=== PATIENT | female | born 1965 ===

== ENCOUNTER 2016-09-25 07:05 | Day surgery (SDC) | payer OTHER ==
[2016-09-17 10:34] VITALS: BMI 28.1
[~2016-09-25 07:05] MED LIST: Ciprofloxacin 0.3% OPTH SOLN OD SCH; Cyclopentolate 1% Opth (2 ml) OD SCH; Flurbiprofen 0.03% Opht SOLN OD SCH; Lactated Ringer's 500 ML IV ONE; Phenylephrine 2.5% Opht Soln OD SCH; Tropicamide 1% Opht SOLUTION OD SCH
[2016-09-25] MEDS ORDERED: Tobramycin/Dexamethasone OPHT OINT ONE ×2 (07:45→07:52)
[2016-09-25] MEDS ORDERED: Chondroitin/Hyaluronate Opth Syringe KIT (0.55 ml-0.5 ml) IO ONE (07:45)
[2016-09-25] MEDS ORDERED: Hyaluronidase Human, Recombi 150 U/ML VIAL ONE ×2 (07:45→09:22)
[2016-09-25] MEDS ORDERED: Carbachol 0.01% IO ONE (07:45)
[2016-09-25] MEDS ORDERED: Povidone Iodine Ophthalmic 5% Soln ONE (07:45)
[2016-09-25] MEDS ORDERED: Tetracaine 0.5% Ophth (OR ONLY) ONE (07:45)
[2016-09-25] MEDS ORDERED: Lidocaine 2% w Epi 1:100,000 Inj IJ ONE (07:52)
[2016-09-25] MEDS ORDERED: Gentamicin 80 mg/2mL Inj. ONE (08:03)
[2016-09-25] MEDS ORDERED: MethylPREDNISolone 40 mg Vial ONE (08:04)
[2016-09-25] MEDS ORDERED: Lactated Ringer's 500 ML IV ONE ×2 (08:25→09:42)
[2016-09-25] MEDS ORDERED: Midazolam 2 MG/2 ML VIAL ONE (09:24)
[2016-09-25] MEDS ORDERED: Propofol 10 mg/ml Inj (20 ML) ONE (09:25)
[2016-09-25 12:17] VITALS: BP 110/64; PULSE 74; RESP 16; TEMP 98.4; O2SAT 99
--- NOTE | 2016-09-26 09:31 | OP ---
PROCEDURE DATE: 09/25/2016 PREOPERATIVE DIAGNOSIS: Peripheral progressive pterygium, right eye. POSTOPERATIVE DIAGNOSIS: Peripheral progressive pterygium, right eye. PROCEDURE PERFORMED: Pterygium removal of right eye. ANESTHESIA: Retrobulbar block. ATTENDING: Dr. Thai Montano COMPLICATIONS: None. ESTIMATED BLOOD LOSS: 0.5 mL. DESCRIPTION OF PROCEDURE: The patient was brought to the operating room, properly identified, sitting superiorly. The pterygium was injected with lidocaine with epinephrine 0.12 and Vianey scissors used to remove the pterygium. The corneal portion was smoothed out with the alen vandana. Hemostasis was maintained with cautery. Mitomycin C was placed on the bare sclera for 1-1/2 minutes and then washed with BSS solution, three large syringes. Once this was complete amniotic membrance was cut to the appropriate site and glued into place with Tisseel glue. Once this was complete, subconjunctival antibiotics and steroids were then given. The eye was covered with soft patch and shield. The patient returned to recovery area in stable condition. Thai Montano MD cc: [id number] TT: 09/26/2016 09:31:05 jn MTDD
== END 2016-09-25 11:40 | disposition home or self-care (01) ==
LOC: C.SDS 07:05
PROVIDERS: ATTEND Ophthalmology
DX: H11.051 Peripheral pterygium, progressive, right eye (principal)
CPT/HCPCS: 65420; 88304; J1580; J2250; J2704; J2920; J3470; J7120; J9280

== ENCOUNTER 2016-09-28 06:01 | Emergency (ER) | payer OTHER ==
[2016-09-28 06:01] VITALS: BMI 28.1
--- NOTE | 2016-09-28 06:37 | C.PDOC ---
History Of Present Illness A 51 y/o female presents to the ER c/o right shoulder pain for 2 days. Pt denies injury, numbness or weakness, or any other complaints. Time Seen by Provider: 09/28/16 06:30 Chief Complaint (Nursing): Upper Extremity Problem/Injury History Per: Patient History/Exam Limitations: no limitations Onset/Duration Of Symptoms: Days Current Symptoms Are (Timing): Still Present Quality: "Pain" Severity: Mild Exacerbating Factor(s): Movement Additional History Per: Patient Past Medical History Reviewed: Historical Data, Nursing Documentation, Vital Signs Vital Signs: Last Vital Signs Temp 98.3 F 09/28/16 06:11 Pulse 85 09/28/16 06:11 Resp 20 09/28/16 06:11 BP 136/79 09/28/16 06:11 Pulse Ox 96 09/28/16 06:38 - Medical History PMH: Hyperthyroidism Denies: Chronic Kidney Disease - [facility] Procedures DRAINAGE OF LEFT UPPER LOBE BRONCHUS, ENDO, DIAGN (12/13/15) Family History: States: Unknown Family Hx - Social History Hx Alcohol Use: No - Immunization History Hx Tetanus Toxoid Vaccination: No Hx Influenza Vaccination: No Hx Pneumococcal Vaccination: No Review Of Systems Except As Marked, All Systems Reviewed And Found Negative. Musculoskeletal: Positive for: Shoulder Pain (Right ). Negative for: Other ( Injury) Neurological: Negative for: Weakness, Numbness Physical Exam - Physical Exam Appears: Non-toxic, No Acute Distress Skin: Warm, Dry Head: Atraumatic, Normacephalic Eye(s): bilateral: Normal Inspection Cardiovascular: Rhythm Regular, No Murmur Respiratory: Normal Breath Sounds, No Rales, No Rhonchi, No Wheezing Extremity: Tenderness (Tenderness and palpation to right shoulder), No Deformity , No Swelling Neurological/Psych: Oriented x3, Normal Speech, Normal Cognition ED Course And Treatment O2 Sat by Pulse Oximetry: 96 (RA) Pulse Ox Interpretation: Normal Medical Decision Making Medical Decision Making: Plans: -Toradol -Reassess and disposition On reassessment, patient is resting comfortably, and is in no acute distress. Patient was instructed to follow up with physician/clinic in 1-2 days for further evaluation. Disposition Counseled Patient/Family Regarding: Diagnosis - Disposition Referrals: [facility] at [facility] [Outside] Disposition: HOME/ ROUTINE Disposition Time: 06:35 Condition: STABLE Additional Instructions: warm cmpress to Right shoulder 4 x a day Prescriptions: Naproxen [Naprosyn Tab] 375 mg PO TIDPC #20 tab Instructions: Shoulder Bursitis (ED) Forms: Gen Discharge Inst Citizen Of [place] Print Language: GREEK - POA Present On Arrival: None - Clinical Impression Clinical Impression: Bursitis, Right shoulder pain - Scribe Statement The provider has reviewed the documentation as recorded by the Scribe Lucian harris All medical record entries made by the Nainibe were at my direction and personally dictated by me. I have reviewed the chart and agree that the record accurately reflects my personal performance of the history, physical exam, medical decision making, and the department course for this patient. I have also personally directed, reviewed, and agree with the discharge instructions and disposition.
[2016-09-28 06:40] VITALS: O2SAT 96
[2016-09-28 06:52] VITALS: BP 129/76; PULSE 81; RESP 17; TEMP 98
== END 2016-09-28 06:52 | disposition home or self-care (01) ==
LOC: C.ER 06:01
DX: M75.51 Bursitis of right shoulder (principal); M25.511 Pain in right shoulder
CPT/HCPCS: 96372; 99284; J1885

== ENCOUNTER 2017-06-13 08:25 | Emergency (ER) | payer OTHER ==
[2017-06-13 08:25] VITALS: BMI 28.1
[2017-06-13 09:41] VITALS: PULSE 72; RESP 18; TEMP 97.9; O2SAT 98
--- NOTE | 2017-06-13 09:43 | C.PDOC ---
History Of Present Illness Pt c/o lump in left posterior neck. Time Seen by Provider: 06/13/17 09:12 Chief Complaint (Nursing): Abnormal Skin Integrity History Per: Patient, Community Health Advisor History/Exam Limitations: language barrier Onset/Duration Of Symptoms: Days (about 2 months) Current Symptoms Are (Timing): Still Present Location Of Injury: Left: Neck Quality Of Symptoms: Painful, Swollen. denies: Draining Severity: Moderate Additional History Per: Prior Records Past Medical History Reviewed: Historical Data, Nursing Documentation, Vital Signs Vital Signs: Last Vital Signs Temp 97.9 F 06/13/17 09:04 Pulse 72 06/13/17 09:04 Resp 18 06/13/17 09:04 BP 117/71 06/13/17 09:04 Pulse Ox 98 06/13/17 09:04 - Medical History PMH: Hyperthyroidism - [facility] Procedures DRAINAGE OF LEFT UPPER LOBE BRONCHUS, ENDO, DIAGN (12/13/15) Family History: States: Unknown Family Hx - Social History Hx Alcohol Use: No Hx Substance Use: No - Immunization History Hx Tetanus Toxoid Vaccination: No Hx Influenza Vaccination: No Hx Pneumococcal Vaccination: No Review Of Systems Except As Marked, All Systems Reviewed And Found Negative. Constitutional: Negative for: Fever, Weakness ENT: Negative for: Throat Pain, Throat Swelling Cardiovascular: Negative for: Chest Pain Respiratory: Negative for: Shortness of Breath Gastrointestinal: Negative for: Vomiting, Abdominal Pain Musculoskeletal: Negative for: Back Pain Skin: Negative for: Rash Neurological: Negative for: Weakness, Numbness, Headache Physical Exam - Physical Exam Appears: Non-toxic, No Acute Distress Skin: Warm, Dry, No Rash Head: Atraumatic, Normacephalic Eye(s): bilateral: PERRL, EOMI Ear(s): Bilateral: Normal Throat: Normal Neck: Normal ROM, No Midline Cervical Tenderness, Supple, Other (Subcutaneous cyst in left side of posterior neck.) Lymphatic: No Adenopathy Cardiovascular: Rhythm Regular Respiratory: Normal Breath Sounds, No Accessory Muscle Use Gastrointestinal/Abdominal: Soft, No Tenderness Extremity: Normal ROM, No Swelling Neurological/Psych: Oriented x3, Normal Speech, Normal Motor, Normal Sensation ED Course And Treatment O2 Sat by Pulse Oximetry: 98 Pulse Ox Interpretation: Normal Medical Decision Making Medical Decision Making: Will refer to surgery for removal. Disposition Counseled Patient/Family Regarding: Diagnosis, Need For Followup, Rx Given - Disposition Referrals: [facility] at [facility] [Outside] Jaye Bravo MD [Staff Provider] - Disposition: HOME/ ROUTINE Disposition Time: 09:46 Condition: STABLE Additional Instructions: Follow up with a surgeon or in the clinic for removal of your cyst. Return to the ER if you develop fever, drainage, worsening of symptoms or if you have any other concerns. Prescriptions: Ibuprofen [Motrin Tab] 600 mg PO TID PRN #30 tab PRN Reason: Pain, Moderate (4-7) Sulfamethoxazole/Trimethoprim [Bactrim DS 800 mg-160 mg] 1 tab PO BID #14 tab Instructions: Cyst (ED) Print Language: [place]ET[place]ESE - Clinical Impression Clinical Impression: Cyst of neck
[2017-06-13] MEDS: Tmp-Smz 800 mg-160 mg DS Tab PO ONE ×2 (09:46→09:47)
[2017-06-13] MEDS ORDERED: Tmp-Smz 800 mg-160 mg DS Tab ONE (09:47)
[2017-06-13 09:56] VITALS: BP 124/80
== END 2017-06-13 09:56 | disposition home or self-care (01) ==
LOC: C.ER 08:25
DX: L72.9 Follicular cyst of the skin and subcutaneous tissue, unspecified (principal); E05.90 Thyrotoxicosis, unspecified without thyrotoxic crisis or storm